=== PATIENT | female | born 1955 | race Two or more races ===

== ENCOUNTER 2021-02-03 17:16 | Emergency (ER) | payer MEDICAID, OTHER ==
[~2021-02-03] VITALS: Ht 160 cm; Wt 90.7 kg
[2021-02-03] MEDS ORDERED: ONDANSETRON HCL 4 MG/2 ML VIAL IV ONE (18:00)
[2021-02-03] MEDS ORDERED: MORPHINE SULFATE 4 MG/ML SYR/VIAL IV ONE (18:00)
[2021-02-03 19:06] VITALS: BP 174/64
[2021-02-03] MEDS ORDERED: ONDANSETRON ODT 4 MG TAB PO ONE (20:45)
[2021-02-03] MEDS ORDERED: HYDROcodone-ACET 10/325MG TAB PO ONE (20:45)
== END 2021-02-03 21:23 | disposition home or self-care (01) ==
LOC: ER 17:16
DX: S30.0XXA Contusion of lower back and pelvis, initial encounter (principal); W01.0XXA Fall on same level from slipping, tripping and stumbling without subsequent striking against object, initial encounter; Y93.89 Activity, other specified; Y92.89 Other specified places as the place of occurrence of the external cause; Y99.8 Other external cause status
CPT/HCPCS: 72131; 96374; 96375; 99284; J2270; J2405; Q0162

== ENCOUNTER 2023-03-29 19:50 | Emergency (ER) | payer OTHER, MEDICAID ==
[~2023-03-29] VITALS: Ht 157.5 cm; Wt 103.7 kg
[2023-03-29] MEDS ORDERED: amLODIPine BESYLATE 5 MG TAB PO ONE (20:30)
[2023-03-29 22:34] LABS: Basophils # (auto) 0.1 10 ^3/uL (0-0.2); Basophils % (auto) 0.8 % (0.0-2.0); Calcium 8.3 mg/dL (8.5-10.1); Eosinophils # (auto) 0.3 10 ^3/uL (0-0.8); Eosinophils % (auto) 3.5 % (0.0-7.0); Hematocrit 40.7 % (36.0-46.0); Hemoglobin 14.1 g/dL (12.2-16.2); Lymphocytes # (auto) 2.3 10 ^3/uL (0.4-5.4); Lymphocytes % (auto) 29.2 % (10.0-50.0); Mean Corpuscular Hemoglobin 31.1 pg (28.0-32.0); Mean Corpuscular Hgb Conc. 34.6 g/dL (32.0-36.0); Mean Corpuscular Volume 89.8 fL (80.0-100.0); Monocytes # (auto) 0.5 10 ^3/uL (0-1.3); Monocytes % (auto) 6.5 % (0.0-12.0); Neutrophils # (auto) 4.6 10 ^3/uL (1.6-8.6); Nucleated Red Blood Cells % 0.1 %; Potassium 3.8 mmol/L (3.5-5.1); Red Blood Cells 4.54 10^6/uL (4.0-5.20); Red Cell Distribution Width 13.2 % (11.8-14.3); White Blood Cell 7.7 10^3/uL (4.4-10.8)
[2023-03-29 22:39] LABS: BUN/Creatinine Ratio 19.8 (10.0-20.0); Bilirubin, Total 0.2 mg/dL (0.2-1.0)
[2023-03-29 22:56] LABS: INR 1.06 (0.9-1.15)
[2023-03-29] MEDS ORDERED: AMLO1TAB23 PO (23:15)
[2023-03-29 23:58] VITALS: BP 181/62
== END 2023-03-30 00:05 | disposition home or self-care (01) ==
LOC: ER 19:50
DX: S80.11XA Contusion of right lower leg, initial encounter (principal); E66.01 Morbid (severe) obesity due to excess calories; Z68.41 Body mass index [BMI] 40.0-44.9, adult; X58.XXXA Exposure to other specified factors, initial encounter; Y93.89 Activity, other specified; Y92.89 Other specified places as the place of occurrence of the external cause; Y99.8 Other external cause status
CPT/HCPCS: 36415; 76881; 80053; 85025; 85610; 93971